=== PATIENT | male | born 1985 | race Caucasian/White ===

== ENCOUNTER 2020-08-27 16:26 | Outpatient (REF) | payer MEDICARE, MEDICAID, SELFPAY | END 2020-08-27 16:27 | disposition home or self-care (01) | LOC: HO.LAB 16:26 | PROVIDERS: Visit Provider Internal Medicine | DX: Z20.828 Contact with and (suspected) exposure to other viral communicable diseases (principal) | CPT/HCPCS: 36415; C9803; U0003 ==

== ENCOUNTER 2020-10-14 18:27 | Emergency (ER) | payer MEDICARE, MEDICAID, SELFPAY ==
--- NOTE | ~2020-10-14 | XR_ITS ---
EXAMINATION: XR CHEST CLINICAL INFORMATION: Cough COMPARISON: 11/24/2013 TECHNIQUE: 2 views of the chest were obtained. FINDINGS: No significant abnormality is noted involving the heart, lungs, mediastinum, bony thorax or soft tissues. XR/XR chest 2V IMPRESSION: Unremarkable examination.
[2020-10-14 20:09] VITALS: BP 135/86; PULSE 88; RESP 16; TEMP 36.6; O2SAT 98; BMI 30.7
--- NOTE | 2020-10-14 21:05 | ED.GENADULT ---
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 States to feel off, has nausea and vomiting that has subsided, states not be sleeping well, has not used his CPAP for quite some time, but has no real complaints. Does not report any fevers, chills, chest pain or pressure, palpitations, shortness of breath, abdominal pain, abdominal distention, dysuria, hematuria, weakness, dizziness, changes in vision, headaches, substance abuse, suicidal ideation, homicidal ideation, or some auditory visual hallucinations. Onset (ago): day(s) Severity: mild Associated symptoms: denies other symptoms Treatments prior to arrival: none Related Data Allergies Allergy/AdvReac Type Severity Reaction Status Date / Time immune globulin,gamma (IgG) AdvReac Unknown NAUSEA & Unverified 05/10/20 14:57 human VOMITING [From [facility]] Review of Systems Review of Systems: Constitutional: No Fever, No Chills ENT/Mouth: No Ear Pain, No Hoarseness, No sore throat Eyes: No Eye Pain, No Swelling, No Redness, No Foreign Body Cardiovascular: No Chest Pain, No SOB Respiratory: No Cough, No Dyspnea Gastrointestinal: No Nausea, No Vomiting, No Diarrhea, No abdominal Pain Genitourinary: No Dysuria, No Hematuria Musculoskeletal: No joint pain, No Myalgias, No Joint Swelling Skin: No Skin lacerations, No rash Neuro: No Weakness, No Numbness, No Paresthesias, No Loss of Consciousness, No Dizziness, No Headache Psych: No Anxiety/Panic, No Depression Heme/Lymph: no easy bruising, no Lymphadenopathy Endocrine: No Polyuria, No Polydipsia Yes all other systems are reviewed and are negative PMFSH Past Medical History Attestation statement: The following information was validated with the patient. Source: old records reviewed Medical History (Updated 10/14/20 @ 22:39 by Sophie Menard NP) Seizure Sleep apnea Surgical History H/O brain surgery Social History Social History Alcohol intake: never Smoking Status: Never smoker Use of substances other than those prescribed or required for medical reasons: No Advance Directives: No Advance Directives Information Provided: No Physical Exam Vital Signs: Vital Signs: Last Vital Signs Temp 98 F 10/14/20 20:09 Pulse 88 10/14/20 20:09 Resp 16 10/14/20 20:09 BP 135/86 10/14/20 20:09 Pulse Ox 98 10/14/20 20:09 Body Mass Index 30.7 Appearance: Alert. Oriented X3. No acute distress. Eyes: Pupils equal, round and reactive to light. ENT: Pharynx normal. Neck: Normal inspection. Neck supple. CVS: Normal heart rate and rhythm. Pulses normal. Respiratory: No respiratory distress. Breath sounds normal. Abdomen: Soft and nontender. Skin: Skin warm and dry. Normal skin color. Normal skin turgor. Extremities: No lower extremity edema. Left-sided contracture per baseline Neuro: No motor deficit. No sensory deficit. 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 We will repeat COVID test, order chest x-ray. Chest x-ray and COVID tests are negative. Patient was advised to follow up with primary care physician. Patient verbalized understanding of and agrees plan of care discharge home. Medical Decision Making Differential Diagnosis Differential Diagnosis: Prolonged COVID-19 symptoms, influenza, RSV, fatigue Medical Records Medical records reviewed: Yes I reviewed the patient's medical records. Lab Data Lab results reviewed: Yes I reviewed the patient's lab results. Labs: Lab Results 10/14/20 Range/Units 21:23 Coronavirus (PCR) NEGATIVE (Negative) Influenza Type A (PCR) NEGATIVE (Negative) Influenza Type B (PCR) NEGATIVE (Negative) RSV RNA Qual (PCR) NEGATIVE (Negative) Imaging Data Chest x-ray: Attestation: I personally reviewed and interpreted this imaging study as follows: Radiologist's impression: EXAMINATION: XR CHEST CLINICAL INFORMATION: Cough COMPARISON: 11/24/2013 TECHNIQUE: 2 views of the chest were obtained. FINDINGS: No significant abnormality is noted involving the heart, lungs, mediastinum, bony thorax or soft tissues. XR/XR chest 2V IMPRESSION: Unremarkable examination. Discharge Plan Discharge Clinical Impression: Ongoing symptomatic disease due to COVID-19 virus Patient Disposition: Home, Self-Care Instructions: COVID-19 (Coronavirus Disease 2019) (ED) Additional Instructions: You were evaluated for vague symptoms consistent with your prior diagnosis of COVID-19. It is highly suspicious that you are having long-term affects of COVID-19. Your chest x-ray was negative, a repeat COVID test was negative. Please follow-up with your primary care physician within the next week. Thank you for choosing this emergency department for evaluation. Please follow-up with primary care physician as needed. Return to the emergency department for any new, concerning, or worsening symptoms. Interventions: ED Discharge Assessment Last Done: 10/14/20 23:11 Discharge Date/Time: 10/14/20 23:12
[2020-10-14 22:07] LABS: Influenza A PCR NEGATIVE (Negative); Influenza B PCR NEGATIVE (Negative); Resp Syncy Virus RNA Qual PCR NEGATIVE (Negative); SARS COV2 PCR INHOUSE NEGATIVE (Negative)
== END 2020-10-14 23:12 | disposition home or self-care (01) ==
PROVIDERS: Nurse Practitioner Family; Emergency Provider Internal Medicine
DX: U07.1 COVID-19 (principal); R05 Cough
CPT/HCPCS: 0241U; 36415; 71046; 99283; 99284